=== PATIENT | female | born 1970 | race Hispanic/Latino ===

== ENCOUNTER 2024-10-31 19:36 | Emergency (ER) | payer BC ==
[2024-10-31] MEDS ORDERED: KETOROLAC 30 MG/ML INJ ONE (19:54)
[2024-10-31] MEDS ORDERED: ONDANSETRON 4 MG/2 ML VIAL ONE (19:54)
[2024-10-31] MEDS ORDERED: NA CHLORIDE 0.9% 1,000 ML ONE (19:55)
[2024-10-31] MEDS ORDERED: MORPHINE 4 MG/ML SYR ONE (19:55)
--- NOTE | 2024-10-31 21:04 | RAD REPORT ---
EXAMINATION: Tib Fib Left VIEWS: Two views CLINICAL INDICATION: Female, 54 years old. leg pain COMPARISON: No prior exam. IMPRESSION: No acute fracture. No acute soft tissue abnormality.
--- NOTE | 2024-10-31 21:05 | RAD REPORT ---
EXAM: Foot Left 3 View HISTORY: DEFORMITY COMPARISON: None FINDINGS: Bones: No acute fracture identified. Alignment:No significant malalignment. Degenerative changes:Plantar aspect calcaneal spur. Other: n/a IMPRESSION: No acute osseous abnormality.
--- NOTE | 2024-10-31 21:30 | ER ---
Nurse's Notes [facility] Name: Silvana Mccoy Age: 54 yrs Sex: Female : 1970 Arrival Date: 10/31/2024 Time: 19:36 Bed 14 Private MD: Diagnosis: Acute left ankle sprain, left ankle lateral ligament sprain Presentation: 10/31 19:36 Chief complaint: EMS states: [place] step into a hole and rg5 her anle got twisted. pain level 01/17. 19:36 Coronavirus screen: Client denies travel out of the [place] in the last 14 days. Client rg5 indicates they have traveled out of the [place] in the last 14 days. Ebola Screen: Patient negative for fever greater than or equal to 101.5 degrees Fahrenheit, and additional compatible Ebola Virus Disease symptoms Patient denies exposure to infectious person. Patient denies travel to an Ebola-affected area in the 21 days before illness onset. Initial Sepsis Screen: Does the patient meet any 2 criteria? No. Patient's initial sepsis screen is negative. Does the patient have a suspected source of infection? No. Patient's initial sepsis screen is negative. Risk Assessment: Do you want to hurt yourself or someone else? Patient reports no desire to harm self or others. Onset of symptoms was October 31, 2024. 19:36 Method Of Arrival: EMS: [facility] 5 19:36 Acuity: ANKITA 3 rg5 Triage Assessment: 19:46 General: Appears in no apparent distress. uncomfortable, Behavior is calm, cooperative, rg5 appropriate for age. Pain: Complains of pain in left foot Pain currently is 8 out of 10 on a pain scale. Quality of pain is described as aching. Neuro: Level of Consciousness is awake, alert, obeys commands, Oriented to person, place, time, situation. Cardiovascular: Patient's skin is warm and dry. Respiratory: Airway is patent Trachea midline Respiratory effort is even, unlabored, Respiratory pattern is regular, symmetrical. Musculoskeletal: Circulation, motion, and sensation intact. Range of motion: intact in all extremities. 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 - Infectious Disease History:: Denies. - Social history:: Smoking status: Patient denies any tobacco usage or history of. Screenin:00 [facility] ED Fall Risk Assessment (Adult) History of falling in the last 3 months, rg5 including since admission No falls in past 3 months (0 pts) Confusion or Disorientation No (0 pts) Intoxicated or Sedated No (0 pts) Impaired Gait No (0 pts) Mobility Assist Device Used No (0 pt) Altered Elimination No (0 pt) Score/Fall Risk Level 0 - 2 = Low Risk Oriented to surroundings, Maintained a safe environment, Hourly rounding (assess needs \T\ fall precautionary measures) done. Abuse screen: Denies threats or abuse. Nutritional screening: No deficits noted. Tuberculosis screening: No symptoms or risk factors identified. Assessment: 19:48 Reassessment: see triage assessment. General: Appears in no apparent distress. rg5 20:00 General: Appears in no apparent distress. comfortable, Behavior is calm, cooperative, rg5 appropriate for age. 20:00 Pain: Complains of pain in left foot. Neuro: Level of Consciousness is awake, alert, rg5 obeys commands, Oriented to person, place, time. Cardiovascular: Patient's skin is warm and dry. Respiratory: Airway is patent Trachea midline Respiratory effort is even, unlabored. GI: Abdomen is round obese. : No signs and/or symptoms were reported regarding the genitourinary system. EENT: No signs and/or symptoms were reported regarding the EENT system. Derm: Skin is intact, Skin is dry, Skin is normal. Vital Signs: 19:42 BP 138 / 88; Pulse 88; Resp 18; Temp 98(O); Pulse Ox 98% on R/A; Weight 78.47 kg; oe Height 5 ft. 2 in. ; Pain 8/10; 20:00 BP 131 / 82; Pulse 79; Resp 17; Pulse Ox 99% on R/A; Pain 6/10; rg5 21:00 BP 119 / ???; Pulse 77; Resp 17; Pulse Ox 99% ; Pain 2/10; rg5 19:42 Body Mass Index 31.64 (78.47 kg, 157.48 cm) oe 19:42 Pain Scale: Adult oe 20:00 Pain Scale: Adult rg5 21:00 Pain Scale: Adult rg5 ED Course: 19:39 Patient arrived in ED. vk 19:42 Jordan Mendoza MD is Attending Physician. sp4 19:43 Raymond Piper, RN is Primary Nurse. rg5 19:46 Triage completed. rg5 19:46 Arm band placed on. rg5 20:00 Patient has correct armband on for positive identification. Door closed. Noise rg5 minimized. 20:00 No provider procedures requiring assistance completed. Maintain EMS IV. Dressing rg5 intact. Good blood return noted. Site clean \T\ dry. Flushed with 10 mL NS. 21:02 Foot Left 3 View XRAY In Process Unspecified. EDMS 21:02 Tib Fib Left XRAY In Process Unspecified. EDMS 21:50 Provided Education on: post er care done. rg5 21:50 IV discontinued, bleeding controlled, No redness/swelling at site. Pressure dressing rg5 applied. Administered Medications: 20:01 Drug: Ketorolac IVP 30 mg IVP once Route: IVP; Site: right wrist; rg5 22:14 Follow up: Response: No adverse reaction; Pain is decreased rg5 20:02 Drug: morphine IVP or IV 4 mg IVP once over 4 mins Route: IVP; Infused Over: 4 mins; rg5 Site: right wrist; 22:14 Follow up: Response: No adverse reaction; Pain is decreased rg5 20:02 Drug: Ondansetron IVP 4 mg IVP once; over 2 minutes Route: IVP; Site: right wrist; rg5 22:13 Follow up: Response: No adverse reaction; Pain is decreased rg5 20:02 Drug: NS 0.9% IV 1000 ml IV at 1 bolus Per protocol; to be given as a bolus over 60 rg5 minutes Route: IV; Rate: 1 bolus; Site: right wrist; 21:20 Follow up: IV Status: Completed infusion; IV Intake: 1000ml rg5 Medication: 20:00 VIS not applicable for this client. rg5 Intake: 21:20 IV: 1000ml; Total: 1000ml. rg5 Outcome: 21:30 Discharge ordered by . sp4 21:45 Discharged to home ambulatory, rg5 21:45 Condition: stable rg5 21:45 Instructed on discharge instructions, follow up and referral plans. Demonstrated understanding of instructions, follow-up care, medications, Prescriptions given X 3, 22:16 Patient left the ED. rg5 Signatures: Dispatcher [employer] EDGA Herrera Cramer Sergey, MD MD sp4 Verenice Yañez Rommel, RN RN rg5
--- NOTE | 2024-10-31 21:30 | EDPHYS ---
Physician Documentation [facility] Name: Silvana Mccoy Age: 54 yrs Sex: Female : 1970 Arrival Date: 10/31/2024 Time: 19:36 Bed 14 Private MD: ED Physician Jordan Mendoza HPI: 10/31 19:42 This 54 yrs old Other Race Female presents to ER via Unassigned with complaints of sp4 Ankle Injury. 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 - Infectious Disease History:: Denies. - Social history:: Smoking status: Patient denies any tobacco usage or history of. Vital Signs: 19:42 BP 138 / 88; Pulse 88; Resp 18; Temp 98(O); Pulse Ox 98% on R/A; Weight 78.47 kg; oe Height 5 ft. 2 in. ; Pain 8/10; 20:00 BP 131 / 82; Pulse 79; Resp 17; Pulse Ox 99% on R/A; Pain 6/10; rg5 21:00 BP 119 / ???; Pulse 77; Resp 17; Pulse Ox 99% ; Pain 2/10; rg5 19:42 Body Mass Index 31.64 (78.47 kg, 157.48 cm) oe 19:42 Pain Scale: Adult oe 20:00 Pain Scale: Adult rg5 21:00 Pain Scale: Adult rg5 Procedures: 21:26 Splinting: Splint applied to left calf, left Achilles and left heel using Ortho 3D sp4 boot, applied by myself. Examined by me, post splint application: neurovascular intact, 2+ distal pulses palpable, brisk capillary refill noted, Patient tolerated well, X-ray revealed no fracture. Likely acute moderate to severe sprain. Patient stable for discharge home. Advised 2 weeks of nonweightbearing to left lower extremity . MDM: 19:47 Medical Screening Exam initiated sp4 21:19 ED course: EXAMINATION: Tib Fib Left VIEWS: Two views CLINICAL INDICATION: Female, 54 sp4 years old. leg pain COMPARISON: No prior exam. IMPRESSION: No acute fracture. No acute soft tissue abnormality. . ED course: EXAM: Foot Left 3 View HISTORY: DEFORMITY COMPARISON: None FINDINGS: Bones: No acute fracture identified. Alignment:No significant malalignment. Degenerative changes:Plantar aspect calcaneal spur. Other: n/a IMPRESSION: No acute osseous abnormality. . 21:26 Differential diagnosis: fracture, sprain, arthritis, gout, cellulitis. Data reviewed: 4 vital signs, nurses notes, EMS record, radiologic studies, plain films. Consideration of Admission/Observation Escalation of care including admission/observation considered. ED course: Patient advised 2 weeks nonweightbearing to left lower extremity. Use the crutches for 2 weeks. Stable for discharge home. 10/31 19:46 Order name: Foot Left 3 View XRAY; Complete Time: 21:18 sp4 10/31 19:47 Order name: Tib Fib Left XRAY; Complete Time: 21:18 sp4 10/31 19:46 Order name: Saline Lock; Complete Time: 20:02 sp4 10/31 21:26 Order name: Ortho shoe: Ortho boot left foot applied by MD; Complete Time: 22:13 sp4 10/31 21:26 Order name: Crutches; Complete Time: 22:13 sp4 Administered Medications: 20:01 Drug: Ketorolac IVP 30 mg IVP once Route: IVP; Site: right wrist; rg5 22:14 Follow up: Response: No adverse reaction; Pain is decreased rg5 20:02 Drug: morphine IVP or IV 4 mg IVP once over 4 mins Route: IVP; Infused Over: 4 mins; rg5 Site: right wrist; 22:14 Follow up: Response: No adverse reaction; Pain is decreased rg5 20:02 Drug: Ondansetron IVP 4 mg IVP once; over 2 minutes Route: IVP; Site: right wrist; rg5 22:13 Follow up: Response: No adverse reaction; Pain is decreased rg5 20:02 Drug: NS 0.9% IV 1000 ml IV at 1 bolus Per protocol; to be given as a bolus over 60 rg5 minutes Route: IV; Rate: 1 bolus; Site: right wrist; 21:20 Follow up: IV Status: Completed infusion; IV Intake: 1000ml rg5 Disposition Summary: 10/31/24 21:30 Discharge Ordered Notes: Location: Home sp4 Problem: new sp4 Symptoms: have improved sp4 Condition: Stable sp4 Diagnosis - Acute left ankle sprain, left ankle lateral ligament sprain sp4 Followup: sp4 - With: Private Physician - When: 7 - 10 days - Reason: Recheck today's complaints Discharge Instructions: - Discharge Summary Sheet sp4 - Ankle Sprain, [id number] sp4 Forms: - Work release form sp4 - Patient Portal Instructions sp4 Prescriptions: - Ibuprofen 800 mg Oral Tablet - take 1 tablet ORAL route every 8 hours As needed take with food; 30 tablet; sp4 Refills: 0, Product Selection Permitted - Tramadol 50 mg Oral Tablet - take 1 tablet ORAL route every 8 hours as needed; 12 tablet; Refills: 0, sp4 Product Selection Permitted - methocarbamol 750 mg Oral tablet - take 2 tablets ORAL route every 8 hours for 2 days PRN pain; 60 tablet; sp4 Refills: 0, Product Selection Permitted Signatures: Dispatcher [employer] Jordan Amezquita MD MD sp4 Raymond Piper RN RN rg5 Corrections: (The following items were deleted from the chart) 19:47 19:47 Tib Fib Left+RAD.RAD.BRZ ordered. EDMS BEBE
[2024-10-31 22:58] VITALS: BP 138/88; TEMP 98
[2024-10-31 23:00] VITALS: O2SAT 99
== END 2024-10-31 22:16 | disposition home or self-care (01) ==
LOC: ER 19:36
DX: S93.492A Sprain of other ligament of left ankle, initial encounter (principal)
CPT/HCPCS: 96361; 73630; 73590; 96375; 96374; 99284; J2405; J7030